=== PATIENT | male | born 1995 ===

== ENCOUNTER 2018-07-02 06:28 | Day surgery (SDC) | payer BC ==
[2018-06-28 09:26] VITALS: BMI 29.5
[2018-07-02] MEDS ORDERED: ceFAZolin 1 gm in NS 2 GM/200 ML BAG IVPB ONE (07:27)
[2018-07-02] MEDS ORDERED: Midazolam 2 MG/2 ML VIAL ONE (07:51)
[2018-07-02] MEDS ORDERED: Propofol 10 mg/ml Inj (20 ML) ONE (07:51)
[2018-07-02] MEDS ORDERED: Rocuronium 10 mg/ml (5 ml) ONE ×3 (08:09→11:34)
[2018-07-02] MEDS: HYDROmorphone 0.5 mg/0.5 ml ISec IVP PRN ×3 (11:52→14:18)
[2018-07-02] MEDS ORDERED: ceFAZolin 1 gm FROZEN Premix 2 GM/100 ML ML IVPB ONE (12:40)
[2018-07-02] MEDS ORDERED: Oxycodone/Acetaminophen 5/325 mg Tab PO PRN ×2 (12:52)
[2018-07-02] MEDS ORDERED: Neostigmine Methylsulfate 3mg/3ml Syringe IV ONE (13:31)
[2018-07-02] MEDS ORDERED: Bupivacaine HCl 0.5% PF (30 ml) Inj ONE (14:16)
--- NOTE | 2018-07-02 14:36 | PCM.ANESB7 ---
Adductor Canal Block - Adductor Canal Block Date of Procedure: 07/02/18 Anesthiologist: Donny Pre-Procedure Diagnosis: s/p left knee arthroscopy with ACL reconstruction Post-Procedure Diagnosis: same Procedure Performed: Adductor Canal Block Left - Procedure Adductor Canal Block: The procedure was explained to the patient that it is for the post-operative pain management. Consent was obtained after a thorough discussion with the patient regarding the benefits and possible complications of local anesthetic adductor canal block of the femoral nerve. Standard monitors, as defined by the ASA, were applied to the patient. Time-out was held with the PACU nurse to confirm the appropriate block. After applying supplemental oxygen, the patient was placed in supine position with and the operative leg was flexed slightly at the knee and externally rotated as needed, and was kept anatomically stable. The mid-thigh of the left lower extremity was exposed. The ultrasound transducer was then applied transversely along the medial aspect, about midway down the thigh and the femoral artery and vein were identified in appropriate relation with the sartorius muscle. At this time, the femoral nerve was visualized lateral to the femoral artery within the canal. After thorough identification, this area area was prepped with Chloroprep solution. At this point, a #22 gauge Stimuplex 4-inch needle was inserted in-plane in a [id number] orientation, and advanced toward the femoral nerve. Advancement was performed carefully under direct ultrasound visualization. After negative aspiration, 2cc of 0.5% Bupivacaine was injected and this was followed with 23cc of 0.5% Bupivacaine. Under ultrasound guidance the local anesthetics were observed spreading around the femoral nerve. The needle was removed intact and sterile dressing was applied. The patient had stable vital signs, was conscious and in no apparent distress. The patient tolerated the femoral nerve block well with stable vital signs
[2018-07-02 15:24] VITALS: TEMP 98; O2SAT 98
[2018-07-02 16:42] VITALS: BP 125/78; PULSE 110; RESP 18
--- NOTE | 2018-07-05 06:54 | PCM.SURG1 ---
Surgeon's Initial Post Op Note - Surgeon's Notes Surgeon: Yogi Patel MD Cement Rubber: Tayo Calderon PA-C Type of Anesthesia: General Endo, Block [facility] Pre-Operative Diagnosis: Left knee: #1 complete ACl tear. #2 medial mensical tear. #3 lateral mensical tear Operative Findings: Left knee: #1 complete ACL tear (grade 3 instability). #2 medial mensical tear (peripheral red-red zone large tear/ menisco-capsular seperation >3cm). #3 lateral mensical tear (3 zones of injury= complex posterior root tear, incomplete, non-repairable/ radial tear at posterior horn- root junction, partially repairable/ complex tear posterior horn white-red zone, repairable). 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 #5 synovitis all 3 compartments. #6 MCL tear grade 2. #7 hypertrophic, inflamed anterior fat pad causing anterior impingement. #8 symptomatic medial and lateral plica bands Post-Operative Diagnosis: Left knee: #1 complete ACL tear (grade 3 instability). #2 medial mensical tear (peripheral red-red zone large tear/ menisco-capsular seperation >3cm). #3 lateral mensical tear (3 zones of injury= complex posterior root tear, incomplete, non-repairable/ radial tear at po sterior horn-root junction, partially repairable/ complex tear posterior horn white-red zone, repairable). 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 #5 synovitis all 3 compartments. #6 MCL tear grade 2. #7 hypertrophic, inflamed anterior fat pad causing anterior impingement. #8 symptomatic medial and lateral plica bands Operation Performed: Left knee Arthroscopic Assisted: #1 ACL reconstruction w/ autograft hamstring- allograft hybrid graft. #2 all inside medial meniscal repair. #3 partial lateral menisectomy with concominant repair. #4 chondroplasty LFC and lateral tibial plateau. #5 debridement and resection medial and lateral symptomatic plica bands. #6 debridement and resection anterior hypertophic fat pad. #7 extensive synovectomy all 3 compartments. #8 intra-articular PRP injection Specimen/Specimens Removed: specimen= none. complications= none. -tourniquet time= 0min. implants=. #1 Arthrex: tight rope button w/ television repair teacher for femoral sided fixation ACL graft, [id number] biocomposite interference screw for tibial sided fixation of ACL graft, SemiT allograft x1. #2 Linvatec: Sequent all inside meniscal repair system, 35 implants in total, 8 kits opened, 12 implants for MM repair ( 3 kits), 23 implants for LM repair (5 kits) Estimated Blood Loss: EBL {In ML}: 10 Blood Products Given: N/A Drains Used: No Drains Post-Op Condition: Good Date of Surgery/Procedure: 07/02/18 Time of Surgery/Procedure: 08:00
--- NOTE | 2018-07-07 11:01 | OP ---
PROCEDURE DATE: 07/02/2018 PREOPERATIVE DIAGNOSES: Left knee: 1. Complete anterior cruciate ligament tear. 2. Medial meniscal tear. 3. Lateral meniscal tear. 4. Partial medial collateral ligament tear. 5. Partial grade 1 lateral collateral ligament and posterolateral corner complex sprain. POSTOPERATIVE DIAGNOSES: Left knee: 1. Complete anterior cruciate ligament tear with grade 3 instability. 2. Medial meniscal tear (peripheral red-red zone large tear/meniscal capsular separation, greater than 3 cm). 3. Lateral meniscal tear (three zones of injury = complex posterior root tear, incomplete, nonrepairable/radial tear at posterior horn - root junction, partially repairable/complex tear posterior horn white-red zone as a long oblique tear, repairable). 4. Grade 1 to 2 chondromalacia lateral compartment with no full-thickness defect seen. 5. Synovitis, all three compartments. 6. Grade 2 partial medial collateral ligament tear. 7. Hypertrophic, inflamed anterior fat pad causing anterior impingement. 8. Symptomatic medial and lateral plica bands. 9. Grade 1 sprain lateral collateral ligament and posterior lateral corner complex (stable). PROCEDURES: Left knee arthroscopic-assisted: 1. ACL reconstruction with autograft hamstring-allograft hybrid graft. 2. Arthroscopic all-inside medial meniscal repair. 3. Arthroscopic partial lateral meniscectomy with concomitant repair. 4. Arthroscopic chondroplasty, lateral femoral condyle and lateral tibial plateau. 5. Arthroscopic debridement and resection, medial and lateral symptomatic plica bands. 6. Arthroscopic debridement and resection, anterior hypertrophic, inflamed fat pad. 7. Arthroscopic extensive synovectomy, all three compartments. 8. Arthroscopic intraarticular platelet-rich plasma injection. 9. Conservative treatment for medial collateral ligament partial tear, and lateral collateral ligament and posterolateral corner complex sprain. SURGEON: Yogi Patel MD MOLDING MACHINE OPERATOR: Tayo Calderon PA-C JUSTIFICATION FOR MOLDING MACHINE OPERATOR: Tayo Calderon is a certified physician economic research assistant whose skilled surgical services were an absolute necessity for successful completion of the procedure as he provided skilled surgical assistance with positioning of the patient, positioning of extremity, harvesting of hamstring autograft, semitendinosus and gracilis tendons, preparation of ACL hybrid autograft and allograft, preparation of femoral tunnel for ACL reconstruction, preparation of tibial tunnel, passage of hybrid ACL graft and femoral-sided fixation as well as tibial-sided fixation, well maintaining good tension and position of knee, facilitating all-inside medial meniscus repair and lateral meniscus repair, handling of arthroscopic equipment and facilitating chondroplasty and extensive synovectomy, wound closure, fitting and placement of postop knee brace. Emaus Kvng was present for the entire case and was an absolute necessity for successful completion of the procedure. ADMINISTERED BY: General endotracheal anesthesia with a postop regional nerve block placed by anesthesia staff in PACU. SPECIMENS: None. COMPLICATIONS: None. TOURNIQUET TIME: Zero minutes. IMPLANTS: 1. Arthrex TightRope button with multimedia project manager for femoral-sided fixation of ACL graft, a 11 mm x 30 mm BioComposite interference screw for tibial-sided fixation of ACL graft, semitendinosus allograft x1. 2. Invieoent all-inside meniscal repair system, 35 implants in total with eight kits open, 12 implants for medial meniscal repair (three kits used), 23 implants for lateral meniscus repair (five kits open). ESTIMATED BLOOD LOSS: 10 mL. DRAINS: None. DISPOSITION: The patient was extubated and transferred to PACU in stable condition having tolerated the procedure well. INDICATIONS FOR SURGERY: The patient is a 22-year-old male with no significant past medial history, who presents to the hospital for the first time with left knee pain, swelling, instability since injury on 05/25/2018, in the office for the first time on 05/31/2018 under my care. He states that on 05/25/2018, he was playing recreational basketball locally with friends, and during the game, he went up for a rebound and landed on his left leg with a twisting mechanism and hyperextension at his left knee resulting in sensation of a pop and immediate 10/10 pain and swelling with difficulty weightbearing on left lower extremity and left knee. He was able to obtain crutches and was ambulating with crutches since then. Physical examination in the office confirmed medial and lateral joint line tenderness to palpation and positive medial and lateral Dale, significant ACL instability with 3+ anterior drawer, 3+ Keenan, 3+ pivot shift, 2+ opening medial joint line at 30 degrees flexion with valgus stress with a firm endpoint representing a partial MCL tear as well. X-rays taken in the office showed no fracture or dislocation, joints paces well maintained, no evidence of DJD with neutral alignment. MRI of left knee done at [facility] on 05/26/2018 was read as: 1. High grade partial, near full thickness tear of ACL. 2. Oblique tear of posterior horn and body of medial meniscus. 3. Oblique tear throughout the lateral meniscus. 4. Grade 2 sprain/partial tear MCL. 5. Grade 1 sprain LCL/posterolateral corner complex. 6. Moderate joint effusion and small Allison cyst. On my review of the MRI, there was indeed medial and lateral meniscal tears of a complex nature that appeared repairable with a near complete ACL tear with some remnant fibers. Clinically, the ACL behaved as a complete tear with grade 3 instability. He was placed initially in an [id number] ACL brace and referred to physical therapy to regain range of motion and strength. The plan was for ACL reconstruction and medial and lateral meniscal repairs during his [employer] break where he would be off from his senior year in college. This would allow him to avoid missing significant academic time and recover at home at least initially during the first 3 to 4 weeks with his parents. At his followup visit, he was reevaluated and indeed did regain 90% of his range of motion and strength. He admitted to significant instability with inability to perform any twisting or pivoting maneuvers without the ACL brace on. He reported clicking and catching with medial and lateral joint line pain and multiple episodes of giving way and locking. I spent a long time with the patient and his family reviewing the MRI findings and his diagnoses. He was indicated for surgery in the form of left knee arthroscopic-assisted ACL reconstruction with autograft and possible allograft augmentation if indicated and needed, medial and lateral meniscal repairs versus partial meniscectomy, chondroplasty/microfracture, synovectomy, and all-related indicated arthroscopic procedures. The plan was to treat the MCL injury and LCL/posterolateral corner sprain conservatively. The risks, benefits, and alternatives of the procedure were discussed at length with the patient with the risks including, but not limited to infection, neurovascular damage, need for further surgery. We will add further information during edit. PROCEDURE IN DETAIL: We will add further information during edit. Yogi Patel MD
== END 2018-07-02 17:50 | disposition home or self-care (01) ==
LOC: C.SDS 06:28
PROVIDERS: ATTEND Student in an Organized Health Care Education/Training Program
DX: S83.512A Sprain of anterior cruciate ligament of left knee, initial encounter (principal); S83.232A Complex tear of medial meniscus, current injury, left knee, initial encounter; S83.272A Complex tear of lateral meniscus, current injury, left knee, initial encounter; S83.289A Other tear of lateral meniscus, current injury, unspecified knee, initial encounter; M65.9 Synovitis and tenosynovitis, unspecified; S83.419A Sprain of medial collateral ligament of unspecified knee, initial encounter
CPT/HCPCS: 29876; 29880; 29888; J0171; J0690; J1100; J1170; J2001; J2250; J2704; J2710; J3010